=== PATIENT | male | born 1950 | race Caucasian/White ===

== ENCOUNTER → 2019-11-19 12:00 | Outpatient (CLI) | payer OTHER, SELFPAY ==
--- NOTE | ~2019-11-19 | XR_ITS ---
EXAMINATION: CT abdomen pelvis wo/w con, XR abdomen/kub 1V DATE: 11/19/2019 13:15 INDICATION: Gross hematuria TECHNIQUE: 1. Computed tomography (CT) of the abdomen and pelvis was performed without intravenous contrast. CT of the abdomen and pelvis was then performed with a total of 130 mL Omnipaque-350 intravenous contras t using a double-bolus technique for simultaneous opacification of the renal parenchyma and renal col lecting system. Automated exposure control and iterative reconstruction technique were employed. The dose-length product was 1820.07 mGy-cm. 2. A single view of the abdomen was obtained on 2 radiographs. COMPARISON: KUB dated 12/17/[address] dated 03/15/2011 FINDINGS: CT UROGRAM: Mild dependent atelectasis in the bilateral lower lobes. Calcified right hilar and infrahilar lymph n odes consistent with old granulomatous disease. Heart size is normal. Atherosclerotic coronary artery calcifications. No pericardial or pleural effusion. Small sliding-type hiatal hernia. Liver, gallbla dder, spleen, pancreas and bilateral adrenal glands are normal. Appendix is normal. There is marked c olonic diverticulosis along the descending and sigmoid colon without adjacent inflammatory change to suggest diverticulitis. No bowel obstruction. Small fat-containing left inguinal hernia. No free intr aperitoneal gas or fluid. No pathologically enlarged abdominal or pelvic lymphadenopathy. There is ca lcified atherosclerosis of the aorta and many of the other arteries. Severe lower cervical spondylosi s including L5 spondylolysis with bilateral pars interarticularis defects and 5 mm anterolisthesis on S1. Symmetric bilateral renal parenchymal enhancement. 6 mm low-attenuation nonenhancing cyst in the righ t kidney. There is a small likely subcapsular fluid collection along the posterior periphery of the l ower pole of the left kidney measuring up to 5 mm in thickness. Bilateral nonobstructing nephrolithia sis. This includes 3 stones in the right kidney measuring up to 2 mm and 4 stones in the left kidney, the largest measuring 7 x 2 mm. No stones seen along the course of the bilateral ureters. No urothel ial irregularities identified along the contrast opacified portions of the bilateral renal collecting systems or ureters. Portions of the mid left and mid to distal right ureter remain unopacified with contrast. Bilateral ureteral jets are identified within the bladder. There is mild trabeculation of t he bladder wall which could be related to chronic outlet obstruction from the enlarged prostate. ABDOMEN RADIOGRAPH(S): The 2 largest stones at the lower pole of the left kidney are visible on the plain radiographs. The r emaining smaller stones in the bilateral kidneys are unable to be definitively identified likely due to their small size as well as some superimposed bowel gas projecting over portions of both kidneys. IMPRESSION: 1. Bilateral nonobstructing nephrolithiasis. 2. Trabeculated bladder wall which may be related to chronic outlet obstruction from the enlarged pro state. 3. Small likely subcapsular fluid collection at the periphery of the lower pole of the left kidney wh ich is of indeterminate etiology with no evident underlying renal parenchymal lesion. 4. Prominent diverticulosis along the descending and sigmoid colon. 5. Small sliding-type hiatal hernia. Reviewed, dictated and finalized at location B. IMPRESSION: 1. Bilateral nonobstructing nephrolithiasis. 2. Trabeculated bladder wall which may be related to chronic outlet obstruction from the enlarged prostate. 3. Small likely subcapsular fluid collection at the periphery of the lower pole of the left kidney which is of indeterminate etiology with no evident underlyi ng renal parenchymal lesion. 4.
[2019-11-19 12:53] LABS: Estimated Glomerular Filt Rate > 60
== END ==
PROVIDERS: Visit Provider Urology
DX: R31.0 Gross hematuria (principal); N20.0 Calculus of kidney; R93.41 Abnormal radiologic findings on diagnostic imaging of renal pelvis, ureter, or bladder; K57.90 Diverticulosis of intestine, part unspecified, without perforation or abscess without bleeding; K44.9 Diaphragmatic hernia without obstruction or gangrene
CPT/HCPCS: 36415; 74018; 74178; Q9967

== ENCOUNTER 2020-05-09 10:19 | Outpatient (CLI) | payer OTHER, SELFPAY ==
--- NOTE | ~2020-05-09 | XR_ITS ---
XR abdomen/kub 1V 05/09/2020 10:43 Indication: Left renal stone Procedure: KUB Comparison: Comparison to multiple prior studies sequentially, with oldest reviewed study dated 05/19. Findings: Bowel gas pattern is nonobstructive. There are bilateral renal stones, largest in the lower pole of the left kidney measuring approximately 4 mm. Mild lumbar spondylosis. 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 No stones identified in the expected course of the ureters. Pattern Impression: 1: Bilateral nephrolithiasis. Reviewed, dictated and finalized at location A. Impression: 1: Bilateral nephrolithiasis.
== END 2020-05-09 10:20 | disposition home or self-care (01) ==
LOC: ANHIMG 10:25
PROVIDERS: Visit Provider Urology
DX: N20.0 Calculus of kidney (principal)
CPT/HCPCS: 74018

== ENCOUNTER 2021-05-21 12:10 | Outpatient (CLI) | payer MEDICARE, SELFPAY ==
--- NOTE | ~2021-05-21 | XR_ITS ---
EXAMINATION: XR abdomen/kub 1V EXAM DATE: 05/21/2021 12:47 INDICATION: Bilateral nephrolithiasis. Follow-up. TECHNIQUE: Frontal projection of the upper abdomen, frontal projection lower abdomen/pelvis for inter pretation. Comparison is made to prior examination from 05/09/2020. FINDINGS: Small left inferior calyceal stone unchanged. Right renal contour is obscured by stool.. T here is right hip replacement. There are mild bony degenerative changes. Nonobstructive bowel gas pat tern. IMPRESSION: Left nephrolithiasis unchanged. Reviewed, dictated and finalized at location A.
== END 2021-05-21 12:11 | disposition home or self-care (01) ==
LOC: ANHIMG 12:18
PROVIDERS: PCP Emergency Medicine; Visit Provider Nurse Practitioner Adult Health
DX: N20.0 Calculus of kidney (principal)
CPT/HCPCS: 74018

== ENCOUNTER 2022-05-26 13:37 | Outpatient (CLI) | payer MEDICARE, SELFPAY ==
--- NOTE | ~2022-05-26 | XR_ITS ---
XR abdomen/kub 1V 05/26/2022 14:14 Indication: Nephrolithiasis. Procedure: KUB Comparison: 05/21/2021 Findings: There is a stone in the lower pole of the left kidney. Bowel gas pattern is nonobstructive. Moderate lumbar spondylosis. There is a right total hip arthroplasty. Impression: 1: Left nephrolithiasis. Reviewed, dictated and finalized at location A. Impression: 1: Left nephrolithiasis.
== END 2022-05-26 13:38 | disposition home or self-care (01) ==
LOC: ANHIMG 13:42
PROVIDERS: PCP Emergency Medicine; Visit Provider Nurse Practitioner Adult Health
DX: N20.0 Calculus of kidney (principal)
CPT/HCPCS: 74018

== ENCOUNTER 2023-05-23 12:55 | Outpatient (CLI) | payer MEDICARE, SELFPAY ==
--- NOTE | ~2023-05-23 | XR_ITS ---
XR abdomen/kub 1V DATE: 05/23/2023 13:18 INDICATION: Bilateral kidney stones TECHNIQUE: 2 supine AP views COMPARISON: 06/05/2022 KUB FINDINGS: Stable approximately 3.7 mm calcified calculus overlying the lower pole of the left kidney. There are a couple punctate calcific densities overlying the mid left kidney which might represent c alcified calculi or content within overlying bowel. Similarly, there are are several calcific densiti es overlying the right kidney which might represent right renal calcified calculi or bowel content. N oncontrast CT abdomen pelvis would be more accurate sensitive for detection of urinary tract calculi. No evidence of bowel obstruction. The psoas shadows are intact. There is a prominent amount of fecal material within the colon but no evidence of bowel obstruction. Degenerative changes of the lumbar spine, most prominent at L5-S1. Status post right total hip arthroplasty. IMPRESSION: Stable small lower pole left renal calcified calculus. Additional bilateral calcified adelaide al calculi cannot be excluded. Noncontrast CT abdomen pelvis would be more sensitive and accurate for detection of urinary tract watson culi Reviewed, dictated and finalized at Location A. Reviewed, dictated and finalized at location B. IMPRESSION: Stable small lower pole left renal calcified calculus. Additional b ilateral calcified renal calculi cannot be excluded. Noncontrast CT abdomen pelvis would be more sensitive and accurate for detectio n of urinary tract calculi
== END 2023-05-23 12:56 | disposition home or self-care (01) ==
LOC: ANHIMG 13:00
PROVIDERS: PCP Emergency Medicine; Visit Provider Nurse Practitioner Adult Health
DX: N20.0 Calculus of kidney (principal)
CPT/HCPCS: 74018

== ENCOUNTER 2024-05-25 11:22 | Outpatient (CLI) | payer MEDICARE, SELFPAY ==
--- NOTE | ~2024-05-25 | XR_ITS ---
EXAMINATION: XR abdomen/kub 1V DATE: 05/25/2024 11:53 INDICATION: Bilateral kidney stones. TECHNIQUE: A supine view of the abdomen on 2 radiographs was obtained. COMPARISON: Abdomen radiographs 05/23/2023, CT abdomen and pelvis 11/19/2019 FINDINGS: There are no dilated loops of bowel. There is a 4 mm stone in right kidney. There is a 4 mm stone in left kidney. There is a total right hip arthroplasty. IMPRESSION: 1. Bilateral kidney stones. Reviewed, dictated and finalized at location A. IMPRESSION: 1. Bilateral kidney stones.
== END 2024-05-25 11:23 | disposition home or self-care (01) ==
PROVIDERS: PCP Emergency Medicine; Visit Provider Nurse Practitioner Adult Health
DX: N20.0 Calculus of kidney (principal)
CPT/HCPCS: 74018

== ENCOUNTER 2025-05-23 14:09 | Outpatient (CLI) | payer MEDICARE, SELFPAY ==
--- NOTE | ~2025-05-23 | XR_ITS ---
EXAMINATION: XR abdomen/kub 1V DATE: 05/23/2025 14:29 INDICATION: Bilateral Kidney stones. TECHNIQUE: A supine view of the abdomen on 2 radiographs was obtained. COMPARISON: 05/25/24. FINDINGS: Large amount of stool. Small bilateral renal stones similar to the study from 05/25/2024. Moderate amount of air in the nondilated large bowel. Small amount of air in nondilated small bowel. Right hip arthroplasty similar to the prior study. Bones appear osteopenic. IMPRESSION: 1. Small bilateral renal stones similar to the study from 05/25/2024. 2. Nonspecific abdomen with a large amount of stool. If continued concern, consider CT imaging for further assessment. Reviewed, dictated and finalized at location Q.
--- OUTSIDE RECORDS SUMMARY | 2025-05-23 15:02 | XMS_ITS | Encounter Summary ---
Author Organization [facility] Address [address] [place] [address] Phone Care Team Providers Care Laborer Landscape Name Role Phone Don Go MD Primary Care Provider [phone] Encounter Details Date Type Department Care Team (Latest Contact Info) Description 03/26/2021 Transcribe Orders [facility] Preop/Pacu II 1 [place] [id number] Jose Elias Arechiga MD [address] [address] Pre-op testing (Primary Dx) Social History Tobacco Use Types Packs/Day Years Used Date Smoking Tobacco: Never Assessed Sex and Gender Information Value Date Recorded Sex Assigned at Not on file Legal Sex Male 7:33 AM CDT Gender Identity Not on file Sexual Orientation Not on file COVID-19 Exposure Response Date Recorded In the last month, have you been in contact with someone who was confirmed or suspected to have Coronavirus / COVID-19? No / Unsure 03/27/2021 8:18 AM CDT documented as of this encounter Plan of Treatment Not on file documented as of this encounter Results * TYPE & SCREEN (CROSSMATCH CONVERTIBLE) (04/20/2021 10:59 AM CDT) ABO TYPING O 04/20/2021 12:36 PM CDT [facility] RH Positive 04/20/2021 12:36 PM CDT [facility] ABSC Negative 04/20/2021 12:36 PM CDT [facility] Blood Venipuncture / Unknown 04/20/2021 10:59 AM CDT 04/20/2021 11:06 AM CDT us Jose Elias Arechiga MD BLOOD BANK ORDERABLES Edited Res ult - Final [facility] #[address] [place] [address] documented in this encounter Visit Diagnoses Diagnosis Pre-op testing- Primary Preoperative examination, unspecified documented in this encounter Care Teams Laborer Landscape Relationship Specialty Start Date End Date Don oG MD [address] [place] [address] PCP - General Family Medicine 04/20/21 documented as of this encounter
--- OUTSIDE RECORDS SUMMARY | 2025-05-23 15:02 | XMS_ITS | Encounter Summary ---
Author Organization [facility] Address [address] [place] [address] Care Team Providers Care Sales And Management Trainee Name Role Phone Don Go MD Primary Care Provider [phone] Encounter Details Date Type Department Care Team (Late st Contact Info) Description 11/16/2020 Prep for Procedure [facility] [address] [place], [place] [id number] Xander Arechiga MD [address] [place] [address], [facility] 1 [place] [address] Social History Tobacco Use Types Packs/Day Years Used Date Smoking Tobacco: Never Smokeless Tobacco: Never Alcohol Use Standard Drinks/Week Comments Not Currently 0 (1 standard drink = 0.6 oz pur e alcohol) Sex and Gender Information Value Date Recorded Sex Assigned at Male 09/21/2024 1:48 PM MANAGER INSTALLATION Legal Sex Male 6:56 PM CDT Gender Identity Not on file Sexual Orientation Not on file COVID-19 Exposure Response Date Recorded In the last month, have you been in contact with someone who was confirmed or suspected to have Coronavirus / COVID-19? No / Unsure 11/13/2020 9:41 AM CDT documented as of this encounter Plan of Treatment Upcoming Encounters Date Type Department Care Team (Late st Contact Info) Description 10/27/2025 9:45 AM CDT Office Visit [facility] [address] [place] [address] Gnee Suh MD [facility] [place] [address] [place] [address] documented as of this encounter Results * ECG 12-Lead (04/24/2021 1:31 PM CDT) 04/24/2021 1:31 PM CDT Narrative [facility] ([facility]) RAD - 04/25/2021 9:18 AM CDT [facility] Test Date: 2021-04-24 Pat Name: COSTA GROVE Department: Room: Gender: Male Police Specialist: : 1950 Requested By: XANDER ARECHIGA Order Number: [id number] Bebeto LUCAS: Xander Burrows Measurements Intervals [place] Rate: 55 P: 57 MS: 166 QRS: 17 QRSD: 86 T: 21 QT: 410 QTc: 393 Interpretive Statements SINUS BRADYCARDIA POSSIBLE LEFT VENTRICULAR HYPERTROPHY [VOLTAGE CRITERIA PLUS LAE OR QRS WIDENING] No previous ECG available for comparison Procedure Note Xander Burrows MD - 04/25/2021 [facility] Test Date: 2021-04-24 Pat Name: COSTA GROVE Department: Room: Gender: Male Police Specialist: : 1950 Requested By: XANDER ARECHIGA Order Number: [id number] Bebeto LUCAS: Xander Burrows Measurements Intervals [place] Rate: 55 P: 57 MS: 166 QRS: 17 QRSD: 86 T: 21 QT: 410 QTc: 393 Interpretive Statements SINUS BRADYCARDIA POSSIBLE LEFT VENTRICULAR HYPERTROPHY [VOLTAGE CRITERIA PLUS LAE OR QRS WIDENING] No previous ECG available for comparison us Xander Arechiga MD ECG ORDERABLES Final Result [facility] ([facility]) RAD documented in this encounter Visit Diagnoses Diagnosis Preop testing- Primary Preoperative examination, unspecified Preop testing Preoperative examination, unspecified documented in this encounter Additional Health Concerns Infection Onset Date Last Indicated Resolved Time COVID-19 Rule Out 11/19/2020 11/19/2020 07/09/2021 6:07 PM MANAGER INSTALLATION COVID-19 Rule Out 10/30/2021 10/30/2021 10/30/2021 4:33 PM CDT COVID-19 Rule Out 11/04/2021 11/04/2021 11/05/2021 7:07 PM CDT documented as of this encounter Care Teams Sales And Management Trainee Relationship Specialty Start Date End Date Don Go MD [address] [place] [address] PCP - General FAMILY PRACTICE 06/13/19 documented as of this encounter
--- OUTSIDE RECORDS SUMMARY | 2025-05-23 15:02 | XMS_ITS | Encounter Summary ---
Author Organization [facility] Address [address] [place] [address] Care Team Providers Care Licensing Services Clerk Name Role Phone Don Go MD Primary Care Provider [phone] Encounter Details Date Type Department Care Team (Late st Contact Info) Description 10/30/2021 Prep for Procedure [facility] [address] [place], [place] [id number] Xander Arecihga MD [address] [place] [address], [facility] 1 [place] [address] Social History Tobacco Use Types Packs/Day Years Used Date Smoking Tobacco: Never Smokeless Tobacco: Never Alcohol Use Standard Drinks/Week Comments Not Currently 0 (1 standard drink = 0.6 oz pur e alcohol) Sex and Gender Information Value Date Recorded Sex Assigned at Male 09/21/2024 1:48 PM HOUSEKEEPING/LAUNDRY SUPERVISOR Legal Sex Male 6:56 PM CDT Gender Identity Not on file Sexual Orientation Not on file COVID-19 Exposure Response Date Recorded In the last 10 days, have yo u been in contact with someone who was confirmed or suspected to have Coronavirus/COVID-19? No / Unsure 10/30/2021 3:27 PM CDT documented as of this encounter Plan of Treatment Upcoming Encounters Date Type Department Care Team (Late st Contact Info) Description 10/27/2025 9:45 AM CDT Office Visit [facility] [address] [place] [phone] Gene Suh MD [place] [id number] [place] [address] documented as of this encounter Results * ECG 12-Lead (10/30/2021 4:04 PM CDT) 10/30/2021 4:04 PM CDT Narrative [facility] ([facility]) RAD - 11/02/2021 11:57 AM CDT [facility] Test Date: 2021-10-30 Pat Name: COSTA GROVE Department: Room: Gender: Male Skimmer Reverberatory: : 1950 Requested By: XANDER ARECHIGA Order Number: [id number] Bebeto LUCAS: Jaron Dudley Measurements Intervals [place] Rate: 62 P: 61 MN: 170 QRS: 28 QRSD: 85 T: 14 QT: 410 QTc: 416 Interpretive Statements SINUS RHYTHM Compared to ECG 04/24/2021 13:31:59 Sinus bradycardia no longer present Procedure Note Jaron Dudley MD - 11/02/2021 [facility] Test Date: 2021-10-30 Pat Name: COSTA GROVE Department: Room: Gender: Male Skimmer Reverberatory: : 1950 Requested By: XANDER ARECHIGA Order Number: [id number] Bebeto Dudley Measurements Intervals [place] Rate: 62 P: 61 MN: 170 QRS: 28 QRSD: 85 T: 14 QT: 410 QTc: 416 Interpretive Statements SINUS RHYTHM Compared to ECG 04/24/2021 13:31:59 Sinus bradycardia no longer present us Xander Arechiga MD ECG ORDERABLES Final Result [facility] ([facility]) RAD documented in this encounter Visit Diagnoses Diagnosis Preop testing- Primary Preoperative examination, unspecified Preop testing Preoperative examination, unspecified documented in this encounter Additional Health Concerns Infection Onset Date Last Indicated Resolved Time COVID-19 Rule Out 10/30/2021 10/30/2021 10/30/2021 4:33 PM CDT COVID-19 Rule Out 11/04/2021 11/04/2021 11/05/2021 7:07 PM CDT documented as of this encounter Care Teams Licensing Services Clerk Relationship Specialty Start Date End Date Don Go MD [address] [place] [address] PCP - General FAMILY PRACTICE 06/13/19 documented as of this encounter
--- OUTSIDE RECORDS SUMMARY | 2025-05-23 15:02 | XMS_ITS | Clinical Summary ---
Author Organization [facility] Address [address] [place] [address] Care Team Providers Care Manifold Builder Name Role Phone Don Go MD Primary Care Provider [phone] Allergies Active Allergy Reactions Criticality Noted Date Comments Lamberto Inhibitors Angioedema 09/24/2024 Latex Rash Low 06/13/2019 Medications Coenzyme Q10 (COQ-10) 100 MG Cap Take 1 tablet by mouth daily. Active Potassium 99 MG tablet Take 1 tablet by mouth daily. Active hydroCHLOROthi azide (HYDRODIURIL) 25 MG tablet Take 1 tablet (25 mg total) by mouth every morning. 90 tablet 3 5 Active rosuvastatin (CRESTOR) 20 MG tablet Take 1 tablet (20 mg total) by mouth nightly at bedtime. 90 tablet 3 5 Active amLODIPine (NORVASC) 5 MG tablet Take 1 tablet (5 mg total) by mouth daily. 90 tablet 1 5 Active amLODIPine (NORVASC) 10 MG tablet Take 1 tablet (10 mg total) by mouth daily. 90 tablet 3 5 04/28/20 25 Discontinued Active Problems Problem Noted Date Diagnosed Date Need for prophylactic vaccin ation and inoculation against rabies 05/24/2022 Contact with or exposure to rabies 05/23/2022 Hyperlipemia 11/07/2021 Hypertension 11/07/2021 Osteoarthritis of right hip 04/27/2021 Resolved Problems Problem Noted Date Diagnosed Date Resolved Date Encounter for preventive health examination 03/07/2016 11/12/2021 Encounters Date Type Department Care Team Description 04/28/2025 9:15 AM CDT Office Visit [facility] [address] [place] [phone] Eugenia Zimmerman, TAX MANAGER Follow Up 04/28/2025 Travel from Last 3 Months Immunizations Immunization Administration Dates Next Due Influenza (Generic) 06/09/2019 MODERNA COVID-19 (12+) MRNA, LNP-S, PF, 100 MCG/ 0.5 ML DOSE 07/02/2021,11/27/2020,10/30/2020 Rabies (Rabavert) 06/06/2022, 2,05/26/2022,2021 Shingrix 05/26/2020,03/14/2020 Tdap (Boostrix) 05/23/2022 Family History Medical History Relation Comments Hypertension Father Relation Status Comments Father Social History Tobacco Use Types Packs/Day Years Used Date Smoking Tobacco: Never Smokeless Tobacco: Never Alcohol Use Standard Drinks/Week Comments Not Currently 0 (1 standard drink = 0.6 oz pur e alcohol) Sex and Gender Information Value Date Recorded Sex Assigned at Male 09/21/2024 1:48 PM COMMUNICATIONS TECHNOLOGIST Legal Sex Male 6:56 PM CDT Gender Identity Not on file Sexual Orientation Not on file Last Filed Vital Signs Vital Sign Reading Time Taken Comments Blood Pressure 138/72 04/28/2025 9:34 AM CDT Pulse 71 04/28/2025 9:34 AM CDT Temperature 36.3 C (97.4 F) 11/10/2024 11:21 AM CDT Respiratory Rate 18 04/28/2025 9:34 AM CDT Oxygen Saturation 98% 04/28/2025 9:34 AM CDT Inhaled Oxygen Concentration - - Weight 96.6 kg (213 lb) 04/28/2025 9:34 AM CDT Height 172.7 cm (5' 8) 04/28/2025 9:34 AM CDT Body Mass Index 32.39 04/28/2025 9:34 AM CDT Plan of Treatment Upcoming Encounters Date Type Department Care Team (Late st Contact Info) Description 10/27/2025 9:45 AM CDT Office Visit [facility] [address] [place] [phone] Gene Suh MD [facility] [address] [address] Health Maintenance Due Date Last Done Comments Hepatitis C 1968 Annual Medicare Wellness Visit 2014 Pneumococcal Vaccine: 50+ Years (2 of 2 - PPSV23) 04/23/2021 02/26/2021 RSV Immunization or 60+ Years (1 - 1-dose 75+ series) 2024 COVID-19 Vaccine (4 - 2024-2 6 season) 2025 07/02/2021, 11/27/2020, 10/30/2020 Colorectal Cancer Screening Colonoscopy (10 Years) 08/18/2025 08/18/2015 DTaP, Tdap and Td Vaccines ( 2 - Td or Tdap) 05/23/2032 05/23/2022 Zoster Vaccines Completed 05/26/2020, 03/14/2020 Meningococcal B Vaccine Aged Out No l onger eligible based on patient's age to complete this topic Meningococcal Vaccine Aged Out No damon citlaly eligible based on patient's age to complete this topic RSV Immunizations Under 20 Months Aged Out No longer eligible b ased on patient's age to complete this topic Goals Goal Patient Goal Type Associated Problems Recent Progress Patient-Stated? Author Health - patient able to perform ADLs independently General No Joanna Pearce, RN Medical Devices Implanted Type Area Pumper Gager Apprentice Device Identifier Shelf Expiration Date Model / Serial / Lot Baseplate Tibial Triathlon 6 Knee Tritanium - [id number] Implanted:Qty : 1 on 11/07/2021 by Jose Elias Arechiga MD at [facility] Knee Components Left: Tibia [employer] DIV [employer] 06/06/2026 5536-B-60 0 / / [id number] Component Femoral 5 Knee Left Cruciate Retain Bead Triathlon Pa - [id number] Implanted:Qty : 1 on 11/07/2021 by Jose Elias Arechiga MD at [facility] Knee Components Left: Femur [employer] 04/14/2026 5517-F-50 1 / / [id number] Triathlon X3 Tibial Bearing Insert - [id number] Implanted:Qty : 1 on 11/07/2021 by Jose Elias Arechiga MD at [facility] Left: Tibia 01/11/2026 5531-G-60 9-E / / [id number] Explanted Type Area Pumper Gager Apprentice Device Identifier Shelf Expiration Date Model / Serial / Lot Pin Matilde Bone Cam 110 X 4 - [id number] Explanted:Qty: 1 on 11/07/2021 by Jose Elias Arechiga MD at [facility] Pin Left: Tibia [employer] 03/20/2026 [id number] / / [id number] Pin Matilde Bone Cam 140 X 4 - [id number] Explanted:Qty: 1 on 11/07/2021 by Jose Elias Arechiga MD at [facility] Pin Left: Femur [employer] 09/11/2026 [id number] / / [id number] Procedures Procedure Name Priority Date/Time Associated Diagnosis Comments COLONOSCOPY Routine 08/18/2015 12:00 AM COMMUNICATIONS TECHNOLOGIST from Last 3 Months or Most Recently Relevant to Health Maintenance Results * Colonoscopy (08/18/2015 12:00 AM COMMUNICATIONS TECHNOLOGIST) 08/18/2015 08/18/2015 Narrative [facility] TO EPIC CONVERSION - 08/18/2015 12:00 AM COMMUNICATIONS TECHNOLOGIST Documented hx of procedure Procedure Note Eliud Lucas MD - 06/21/2018 Documented hx of procedure us Generic Conversion Md [facility] GI PROCEDURE ORDERABLES Final Result [facility] TO EPIC CONVERSION from Last 3 Months or Most Recently Relevant to Health Maintenance Insurance MEDICARE AET[employer] Advance Directives * Full Code (Latest Code Status on File) Date Activated Date Inactivated Comments 11/07/2021 12:04 PM 11/08/2021 4:55 PM Care Teams Manifold Builder Relationship Specialty Start Date End Date Don Go MD [address] [place] [address] PCP - General FAMILY PRACTICE 06/13/19
--- OUTSIDE RECORDS SUMMARY | 2025-05-23 15:02 | XMS_ITS | Encounter Summary ---
Author Organization [facility] Address [address] [place] [id number] Care Team Providers Care Collar Pointer Name Role Phone Don Go MD Primary Care Provider [phone] Encounter Details Date Type Department Care Team (Late st Contact Info) Description 05/24/2022 Therapy Plan [facility] Infusion Services [facility] [place], [place] [id number] Chinmay Ardon MD [address] [facility] [id number] [place], [place] [id number] Social History Tobacco Use Types Packs/Day Years Used Date Smoking Tobacco: Never Smokeless Tobacco: Never Alcohol Use Standard Drinks/Week Comments Not Currently 0 (1 standard drink = 0.6 oz pur e alcohol) Sex and Gender Information Value Date Recorded Sex Assigned at Male 09/21/2024 1:48 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 No / Unsure 05/23/2022 1:24 PM CDT documented as of this encounter Functional Status * RETIRED Are you deaf or do you have serious difficulty hearing Answer Date of Assessment Author Status Yes 11/07/2021 1:00 PM CDT Activ e * RETIRED Are you blind or do you have serious difficulty seeing, even when wearing glasses? Answer Date of Assessment Author Status No 11/07/2021 1:00 PM CDT Activ e * Do you have serious difficulty walking or climbing stairs? Answer Date of Assessment Author Status Yes 11/07/2021 1:00 PM SREEKANTHT Izzy Mcnally RN Active * Do you have difficulty dressing or bathing? Answer Date of Assessment Author Status No 11/07/2021 1:00 PM SREEKANTHT Izzy Mcnally RN Active * Because of a physical, mental, or emotional condition, do you have difficulty doing errands alone such as visiting a doctor's office or shopping? Answer Date of Assessment Author Status No 11/07/2021 1:00 PM Izzy Tan RN Active documented as of this encounter Mental Status * Because of a physical, mental, or emotional condition, do you have serious difficulty concentrating, remembering, or making decisions? Answer Entry Date Author Status No 11/07/2021 1:00 PM Izzy Tan RN Active documented in this encounter Plan of Treatment Upcoming Encounters Date Type Department Care Team (Late st Contact Info) Description 10/27/2025 9:45 AM CDT Office Visit [facility] [phone] Gene Suh MD [address] [address] documented as of this encounter Goals Goal Patient Goal Type Associated Problems Recent Progress Patient-Stated? Author Health - patient able to perform ADLs independently General No Joanna Pearce RN documented as of this encounter Visit Diagnoses Diagnosis Need for prophylactic vaccination and inoculation against rabies- Primary Contact with or exposure to rabies documented in this encounter Care Teams Collar Pointer Relationship Specialty Start Date End Date Don Go MD [address] [place] [id number] PCP - General FAMILY PRACTICE 06/13/19 documented as of this encounter
--- OUTSIDE RECORDS SUMMARY | 2025-05-23 15:02 | XMS_ITS | Clinical Summary ---
Author Organization [facility] Address [address] [place] [address] Phone Care Team Providers Care Heel Turner Name Role Phone Don Go MD Primary Care Provider [phone] Allergies Active Allergy Reactions Criticality Noted Date Comments Latex Rash 04/26/2021 Medications simvastatin (ZOCOR) 20 MG Tablet Take 20 mg by mouth every evening. Active amLODIPine (NORVASC) 5 MG Tablet Take 5 mg by mouth daily. Active LISINOPRIL PO Take 10 mg by mouth daily. Active Zinc 50 MG Capsule Take 50 mg by mouth daily. Active Cholecalciferol (Vitamin D3) 1000 UNIT Tablet Take 1,000 Units by mouth daily. Active Potassium 99 MG Tablet Take 99 mg by mouth daily. Active Coenzyme Q10 100 MG Capsule Take 100 mg by mouth daily. Active Magnesium 250 MG Tablet Take 250 mg by mouth daily. Active PROBIOTIC PRODUCT PO Take 1 Tablet by mouth daily. BI-COMPLEX 3 Active aspirin EC (ECOTRIN) 325 MG Tablet Delayed ResponseIndicati ons:Surgical DVT/VTE Prophylaxis Take 1 Tablet by mouth daily. Indications: Surgical DVT/VTE Prophylaxis 0 1 Active HYDROcodone-acet aminophen (NORCO) 5-325 MG TabletIndication s:Moderate to Moderately Severe Pain Take 1-2 Tablets by mouth every 6 hours as needed for Mild or more severe pain. Indications: Moderate to Moderately Severe Pain 12 Tablet 1 Active Active Problems Problem Noted Date Diagnosed Date Osteoarthritis of right hip 04/27/2021 Hypertension Hyperlipemia Family History Medical History Relation Name Comments Coronary Artery Disease Father Cancer Mother reproductive sy stem Relation Name Status Comments Father Mother Social History Tobacco Use Types Packs/Day Years Used Date Smoking Tobacco: Never Smokeless Tobacco: Never Alcohol Use Standard Drinks/Week Comments Yes 1 (1 standard drink = 0.6 oz pur e alcohol) occasional Sex and Gender Information Value Date Recorded Sex Assigned at Not on file Legal Sex Male 7:33 AM CDT Gender Identity Not on file Sexual Orientation Not on file Last Filed Vital Signs Vital Sign Reading Time Taken Comments Blood Pressure 119/58 04/27/2021 7:48 AM CDT Pulse 54 04/27/2021 4:00 AM CDT Temperature 36.2 C (97.2 F) 04/27/2021 7:48 AM CDT Respiratory Rate 16 04/27/2021 7:48 AM CDT Oxygen Saturation 99% 04/27/2021 7:48 AM CDT Inhaled Oxygen Concentration - - Weight 95.3 kg (210 lb) 03/27/2021 7:00 AM CDT Height 175.3 cm (5' 9) 03/27/2021 7:00 AM CDT Body Mass Index 31.01 03/27/2021 7:00 AM CDT Plan of Treatment Health Maintenance Due Date Last Done Comments Hepatitis C Virus (HCV) Screening 1950 TdaP Immunization 1950 Cologuard 1994 Colonoscopy 1994 Colorectal Cancer Screening 1994 Immunochemical Fecal Occult Blood 1994 Pneumococcal Immunization (50+ years) (1 of 1 - PCV) 1999 Zoster Immunization (1 of 2) 1999 Medicare Initial AWV [id number] 04/18/2017 Respiratory Syncytial Virus (RSV) Immunization (Adult) (1 - 1-dose 75+ series) 2024 Influenza Immunization (#1) 2025 SARS-COV-2 Immunization (2024- season) 2025 03/26/2022, 07/02/2021, 11/27/2020, Additional history exists Hepatitis B Immunization Aged Out No longer eligible based on patient's age to complete this topic Human Papillomavirus (HPV) Immunization Aged Out No longer eligible based on patient's age to complete this topic Meningococcal Immunization (ACWY) Aged Out No longer eligible based on patient's age to complete this topic Rotavirus Immunization Aged Out No lo nger eligible based on patient's age to complete this topic Medical Devices Implanted Type Area Telecom Field Technician Device Identifier Shelf Expiration Date Model / Serial / Lot Screw Hex Low Profile 6.5x30mm - [id number] Implanted:Qty: 1 on 04/26/2021 by Jose Elias Arechiga MD at [facility] IMPLANT Right: Hip [employer] 07/30/2025 [id number] / [id number] / [id number] Liner Actb Mdm G 48mm Cocr Hip 28mm Fem Head - [id number] Implanted:Qty: 1 on 04/26/2021 by Jose Elias Arechiga MD at [facility] IMPLANT Right: Hip [employer] 12/11/2025 626-00-48G / [id number] / [id number] Insert Actb 48mm 54mm 28mm Hip X3 Polye Adm Mobile Bearing Hip Mormon 9.9mm - [id number] Implanted:Qty: 1 on 04/26/2021 by Jose Elias Arechiga MD at [facility] IMPLANT Right: Hip [employer] 11/12/2025 [id number] / [id number] / [id number] Head Fem +4mm Ofst Taper 28mm Hip Biol[employer] Delta V40 - [id number] Implanted:Qty: 1 on 04/26/2021 by Jose Elias Arechiga MD at [facility] IMPLANT Right: Hip [employer] 01/17/2026 [id number] / [id number] / [id number] Trident Tritanium Clusterhole Acetabular Shell Implanted:Qty: 1 on 04/26/2021 by Jose Elias Arechiga MD at [facility] Right: Hip [employer] 09/25/2025 702-04-60G / 702-04-60G / [id number] Accolade Ii 127 Degree Neck Angle Hip Stem Implanted:Qty: 1 on 04/26/2021 by Jose Elias Arechiga MD at [facility] Right: Hip 02/07/2026 [id number] / [id number] / [id number] [facility] Care Teams Heel Turner Relationship Specialty Start Date End Date Don Go MD [address] [place] [address] PCP - General Family Medicine 04/20/21
== END 2025-05-23 14:10 | disposition home or self-care (01) ==
PROVIDERS: PCP Emergency Medicine; Visit Provider Urology
DX: N20.0 Calculus of kidney (principal)
CPT/HCPCS: 74018